=== PATIENT | female | born 1985 | race African-American/Black ===

== ENCOUNTER 2017-05-07 15:31 | Emergency (ER) | payer BC, OTHER ==
[2017-05-07 15:40] VITALS: BP 120/79; PULSE 103; TEMP 98.9; BMI 43.8
--- NOTE | 2017-05-07 16:13 | PDOC ---
History of Present Illness - General Chief Complaint: Respiratory Stated Complaint: COUGH Time Seen by Provider: 05/07/17 15:48 History Source: Patient Exam Limitations: No Limitations - History of Present Illness Initial Comments: 05/07/17 16:28 Patient came to emergency department for evaluation of worsening cold, sneezing , ear pain, sore throat pain, runny nose or drainage and generalized body aches. States all of work has been ill with same, and worries about influenza. States his use [id number] medications with minimal resolved. Timing/Duration: reports: getting worse Severity: reports: mild, moderate Associated Symptoms: reports: cough, dizziness, earache, fever/chills, muscle aches, nasal drainage, sore throat Past History - Travel Traveled outside of the country in the last 30 days: No Close contact w/someone who was outside of country & ill: No - Past Medical History Allergies/Adverse Reactions: Allergies Allergy/AdvReac Type Severity Reaction Status Date / Time Latex, Natural Rubber AdvReac Severe Rash Verified 05/07/17 15:40 citrus fruits, oranges AdvReac Uncoded 05/07/17 15:40 Home Medications: Ambulatory Orders No Home Medications 0 dose .ROUTE UTDICT 11/13/12 Oseltamivir Phosphate [Tamiflu -] 75 mg PO BID #10 capsule 05/07/17 COPD: No - Suicide/Smoking/Psychosocial Hx Smoking Status: Yes Smoking History: Current some day smoker Number of Cigarettes Smoked Daily: 8 Information on smoking cessation initiated: No Hx Alcohol Use: Yes (social) Review of Systems - Review of Systems Able to Perform ROS?: Yes Is the patient limited Divehi proficient: Yes Constitutional: Yes: Symptoms Reported, See HPI, Chills, Fever, Malaise HEENTM: Yes: Symptoms Reported, See HPI, Nose Congestion Respiratory: Yes: Symptoms reported, See HPI, Cough. No: Wheezing ABD/GI: Yes: Symptoms Reported, Nausea, Vomiting : No: Symptoms Reported Musculoskeletal: Yes: Symptoms Reported, See HPI, Joint Swelling, Muscle Pain Neurological: Yes: Symptoms reported, See HPI, Headache All Other Systems: Reviewed and Negative *Physical Exam - Vital Signs Last Vital Signs Temp Pulse Resp BP Pulse Ox 98.9 F 103 H 20 120/79 05/07/17 15:36 05/07/17 15:36 05/07/17 15:36 05/07/17 15:36 - Physical Exam Comments: 05/07/17 16:15 GENERAL: [The child is awake, alert, and appropriately interactive.] EYES: [The pupils are equal, round, and reactive to light, with clear, conjunctiva.but glassy] NOSE: [The nose with clear drainage EARS: [The ear canals and tympanic membranes are congested but landmarks easily visualed ] THROAT: [The oropharynx is clear with erythema, no exudates. The mucous membranes are moist.] NECK: [The neck is supple with mildly tender adenopathy, no menigemous] CHEST: [The lungs are coarse but clear without crackles, or wheezes.] HEART: [Heart is regular rhythm, with normal S1 and S2, no murmurs.] ABDOMEN: [The abdomen is soft and nontender with normal bowel sounds. There is no organomegaly and no mass. There is no guarding or rebound.] EXTREMITIES: [Extremities are normal.] NEURO: [Behavior is normal for age.cranky but easily,m Tone is normal.] SKIN: [Skin is unremarkable without rash or swelling. There is no bruising, and there are no other signs of injury.] General Appearance: Yes: Nourished, Appropriately Dressed, Apparent Distress, Mild Distress HEENT: negative: Pharynx Normal Neck: positive: Lymphadenopathy (L) Progress Note - Progress Note Progress Note: Upper respiratory infection, probable influenza. We will treat with Tamiflu as within window, and have follow-up with PMD this week as needed *DC/Admit/Observation/Transfer Diagnosis at time of Disposition: Influenzal acute upper respiratory infection - Discharge Dispostion Disposition: HOME Condition at time of disposition: Stable Admit: No - Prescriptions Prescriptions: Oseltamivir Phosphate [Tamiflu -] 75 mg PO BID #10 capsule - Referrals - Patient Instructions Printed Discharge Instructions: DI for Influenza -- Adult Additional Instructions: Rest, drink lots of fluids: Teas, water, soups, Pedialyte Saltwater gargles Steamy showers/seem to face break up mucus Old-fashioned treatments help! Avoid contact with others until fevers and cough resolved as this is very contagious Lots of handwashing and good hygiene Continue [id number] medications for symptomatic relief Tylenol or Motrin for fever and pain Take all of Tamiflu as directed: 1 tab every 12 hours for 5 days Followup with private physician in one to 2 days as needed or if worsening Return to emergency department for worsened symptoms, fevers, dehydration Influenza takes between 5 and 7 days for resolution To not participate in any activity, work, or school until fevers and cough are gone for at least one day - Post Discharge Activity Forms/Work/School Notes: Back to Work
== END 2017-05-07 16:30 | disposition home or self-care (01) ==
LOC: JERFT 15:31
DX: J11.1 Influenza due to unidentified influenza virus with other respiratory manifestations (principal)
CPT/HCPCS: 99281-25

== ENCOUNTER 2017-05-13 13:16 | Emergency (ER) | payer BC, OTHER ==
[2017-05-13 13:21] VITALS: BP 128/70; PULSE 91; TEMP 98; BMI 43.8
--- NOTE | 2017-05-13 14:07 | PDOC ---
History of Present Illness - General Chief Complaint: Respiratory Stated Complaint: REVISIT,COUGH Time Seen by Provider: 05/13/17 13:47 History Source: Patient Exam Limitations: No Limitations - History of Present Illness Initial Comments: 05/13/17 14:02 This is a 32-year-old female without significant past medical history presents emergency Department with 2 weeks of dry cough. Patient states that approximately 7 days ago she was experiencing rhinorrhea, nasal congestion, sore throat was seen and treated for influenza-type illness with Tamiflu the patient is concerned that the cough has not resolved since then. Patient is here getting reevaluated as the cough has interfered with her daily life any she 's been sent home from work and cannot return without evaluation. She denies fevers, chills, headaches, abdominal pain, nausea, vomiting. Past History - Past Medical History Allergies/Adverse Reactions: Allergies Allergy/AdvReac Type Severity Reaction Status Date / Time Latex, Natural Rubber AdvReac Severe Rash Verified 05/13/17 13:21 citrus fruits, oranges AdvReac Uncoded 05/13/17 13:21 Home Medications: Ambulatory Orders No Home Medications 0 dose .ROUTE UTDICT 11/13/12 Benzonatate [Tessalon Pearls -] 200 mg PO TID #180 cap 05/13/17 COPD: No - Suicide/Smoking/Psychosocial Hx Smoking Status: Yes Smoking History: Current some day smoker Number of Cigarettes Smoked Daily: 8 Information on smoking cessation initiated: No Hx Alcohol Use: Yes (social) Review of Systems - Review of Systems Able to Perform ROS?: Yes Is the patient limited Icelandic proficient: No Constitutional: No: Symptoms Reported HEENTM: No: Symptoms Reported Respiratory: Yes: See HPI Cardiac (ROS): No: Symptoms Reported ABD/GI: No: Symptoms Reported : No: Symptoms Reported Musculoskeletal: No: Symptoms Reported Integumentary: No: Symptoms Reported Neurological: No: Symptoms reported Endocrine: No: Symptoms Reported Hematologic/Lymphatic: No: Symptoms Reported *Physical Exam - Vital Signs Last Vital Signs Temp Pulse Resp BP Pulse Ox 98 F 91 H 18 128/70 99 05/13/17 13:17 05/13/17 13:17 05/13/17 13:17 05/13/17 13:17 05/13/17 13:17 - Physical Exam General Appearance: Yes: Appropriately Dressed. No: Apparent Distress HEENT: positive: Normal ENT Inspection Neck: positive: Trachea midline, Supple Respiratory/Chest: positive: Lungs Clear, Normal Breath Sounds. negative: Respiratory Distress, Accessory Muscle Use Cardiovascular: positive: Regular Rhythm, Regular Rate. negative: Murmur Gastrointestinal/Abdominal: positive: Normal Bowel Sounds, Soft. negative: Tender Musculoskeletal: positive: Normal Inspection. negative: CVA Tenderness Extremity: positive: Normal Inspection, Normal Range of Motion Integumentary: positive: Normal Color, Dry, Warm Neurologic: positive: Alert, Normal Response ED Treatment Course - RADIOLOGY Radiology Studies Ordered: Category Date Time Status CHEST PA & LAT [RAD] Stat Radiology 05/13/17 13:57 Ordered Medical Decision Making - Medical Decision Making 05/13/17 14:05 A/P: 32-year-old female without medical history presents with 2 weeks of dry cough. Lungs clear to auscultation bilaterally. Respirations even and unlabored. Patient coughing throughout exam. Cough is dry nonproductive. Patient is able to speak in full sentences RRR. S1 and S2 present. No murmurs, rub or gallop. Abdomen soft nontender nondistended. Patient is a 32 tried symptomatic treatments and as mentioned for influenza. I'll perform a chest x-ray given symptoms been lasting 2 weeks to rule out pneumonia. 05/13/17 14:37 X-rays read by Dr. Leal: No acute pathology present. I'll discharge the patient home to continue symptomatic treatment. I'll give the patient a prescription for Tessalon Perles to help with her cough. *DC/Admit/Observation/Transfer Diagnosis at time of Disposition: Upper respiratory infection Qualifiers: URI type: unspecified viral URI Qualified Code(s): J06.9 - Acute upper respiratory infection, unspecified - Discharge Dispostion Disposition: HOME Condition at time of disposition: Stable Admit: No - Prescriptions Prescriptions: Benzonatate [Tessalon Pearls -] 200 mg PO TID #180 cap - Referrals Referrals: Vinh Barrow MD [Primary Care Provider] - - Patient Instructions Additional Instructions: Rest, drink lots of fluids: Teas, water, soups, Pedialyte Saltwater gargles Steamy showers/seem to face break up mucus Avoid contact with others until fevers and cough resolved Lots of handwashing and good hygiene Continue [id number] medications for symptomatic relief Tylenol or Motrin for fever and pain Take Tessalon 200 mg 3 times a day for coughing Followup with private physician in one to 2 days as needed Return to emergency department for worsened symptoms, fevers, dehydration - Post Discharge Activity
== END 2017-05-13 14:50 | disposition home or self-care (01) ==
LOC: JERFT 13:16
DX: J06.9 Acute upper respiratory infection, unspecified (principal); F17.210 Nicotine dependence, cigarettes, uncomplicated
CPT/HCPCS: 71046-TC-FY; 84703; 99281-25

== ENCOUNTER 2018-04-01 01:30 | Emergency (ER) | payer OTHER, BC ==
--- NOTE | 2018-04-01 01:58 | PDOC ---
History of Present Illness - General Stated Complaint: FALL Time Seen by Provider: 04/01/18 01:57 History Source: Patient Exam Limitations: No Limitations - History of Present Illness Timing/Duration: 4-6 hours Severity: moderate Past History - Travel Traveled outside of the country in the last 30 days: No Close contact w/someone who was outside of country & ill: No - Past Medical History Allergies/Adverse Reactions: Allergies Allergy/AdvReac Type Severity Reaction Status Date / Time Latex, Natural Rubber AdvReac Severe Rash Verified 04/01/18 01:59 citrus fruits, oranges AdvReac Uncoded 04/01/18 01:59 Home Medications: Ambulatory Orders No Home Medications 0 dose .ROUTE UTDICT 11/13/12 Benzonatate [Tessalon Pearls -] 200 mg PO TID #180 cap 05/13/17 COPD: No - Suicide/Smoking/Psychosocial Hx Smoking Status: Yes Smoking History: Current some day smoker Number of Cigarettes Smoked Daily: 8 Hx Alcohol Use: Yes (social) Review of Systems - Review of Systems Constitutional: No: Symptoms Reported, See HPI, Chills, Diaphoresis, Fever, Loss of Appetite, Malaise, Night Sweats, Weakness, Weight Stable, Unintentional Wgt. Loss, Unexplained wgt Loss, Other HEENTM: No: Symptoms Reported, See HPI, Eye Pain, Blurred Vision, Tearing, Recent change in vision, Double Vision, Cataracts, Ear Pain, Ocular Prothesis, Ear Discharge, Nose Pain, Nose Congestion, Tinnitus, Nose Bleeding, Hearing Loss , Throat Pain, Throat Swelling, Mouth Pain, Dental Problems, Difficulty Swallowing, Mouth Swelling, Other Respiratory: No: Symptoms reported, See HPI, Cough, Orthopnea, Shortness of Breath, SOB with Exertion, SOB at Rest, Stridor, Wheezing, Productive cough, Hemoptysis, Other Cardiac (ROS): No: Symptoms Reported, See HPI, Chest Pain, Edema, Irregular Heart Rate, Lightheadedness, Palpitations, Syncope, Chest Tightness, Other ABD/GI: No: Symptoms Reported, See HPI, Abdominal Distended, Abd. Pain w/ defecation, Blood Streaked Bowels, Constipated, Diarrhea, Difficulty Swallowing , Nausea, Poor Appetite, Poor Fluid Intake, Rectal Bleeding, Vomiting, Indigestion, Abdominal cramping, Tarry Stools, Other : No: Symptoms Reported, See HPI, Burning, Dysuria, Discharge, Frequency, Flank Pain, Hematuria, Incontinence, Pain, Urgency, Testicular Mass, Testicular Swelling, Lesions, Testicular Pain, Other Musculoskeletal: No: Symptoms Reported, See HPI, Back Pain, Gout, Joint Pain, Joint Swelling, Muscle Pain, Muscle Weakness, Neck Pain, Joint Stiffness, Other Integumentary: No: Symptoms Reported, See HPI, Bruising, Change in Color, Change in Hair/Nails, Dryness, Erythema, Flushing, Lesions, Lumps, Pallor, Pruritus, Rash, Sweating, Other Neurological: No: Symptoms reported, See HPI, Headache, Numbness, Paresthesia, Pre-Existing Deficit, Seizure, Tingling, Tremors, Weakness, Unsteady Gait, Ataxia, Dizziness, Other Psychiatric: No: Anxiety, Depression, Frequent Crying, Stressors, Sleep Pattern Change, Emotional Problems, Mood Swings, Change in Appetite, Other *Physical Exam - Physical Exam General Appearance: Yes: Nourished, Appropriately Dressed, Mild Distress HEENT: positive: EOMI, DOMINIK, Normal ENT Inspection, Normal Voice, Symmetrical, TMs Normal, Pharynx Normal Neck: positive: Trachea midline, Supple Respiratory/Chest: positive: Chest Tender, Lungs Clear, Normal Breath Sounds, Respiratory Distress Cardiovascular: positive: Regular Rhythm, Regular Rate, S1, S2 Gastrointestinal/Abdominal: positive: Flat, Soft Musculoskeletal: positive: Normal Inspection. negative: CVA Tenderness Extremity: positive: Tender, Pedal Edema, Swelling, Erythema, Inflammation. negative: Cyanosis, Delayed Capillary Refill Integumentary: positive: Normal Color, Dry, Warm Neurologic: positive: traveling nurse II-XII NML intact, Fully Oriented, Alert, Normal Mood/ Affect, Normal Response, Motor Strength 5/5 Medical Decision Making - Medical Decision Making 04/01/18 03:25 Patient Name: LOW BRUNER THIS IS A PRELIMINARY REPORT FROM [facility] DATE OF SERVICE: 2018-04-01 02:12:01 IMAGES: 5 EXAM: X-ray angle and x-ray left foot HISTORY: Trauma COMPARISON: None. FINDINGS: X-ray left ankle: No fracture or dislocation. A dorsal talar spur is noted which appears chronic. No joint effusion. X-ray left ankle: No fracture or dislocation. IMPRESSION: No fracture of the left ankle or left foot *DC/Admit/Observation/Transfer Diagnosis at time of Disposition: Foot sprain, Ankle sprain - Discharge Dispostion Disposition: HOME Condition at time of disposition: Stable Decision to Admit order: No - Referrals Referrals: Vinh Barrow MD [Primary Care Provider] - Ace Beck MD [Staff Physician] - - Patient Instructions Printed Discharge Instructions: DI for Ankle Sprain, DI for Foot Sprain - Post Discharge Activity
[2018-04-01 02:00] VITALS: BP 118/76; PULSE 98; TEMP 97.6; BMI 43.8
[2018-04-01] MEDS ORDERED: IBUPROFEN 600 MG TABLET (FP) PO ONE (03:23)
[2018-04-01] MEDS ORDERED: IBUPROFEN 400 MG TABLET (FP) PO ONE (03:24)
== END 2018-04-01 03:31 | disposition home or self-care (01) ==
LOC: JER 01:30
DX: S93.492A Sprain of other ligament of left ankle, initial encounter (principal); S93.692A Other sprain of left foot, initial encounter; W19.XXXA Unspecified fall, initial encounter; Y93.89 Activity, other specified; Y92.89 Other specified places as the place of occurrence of the external cause; Y99.8 Other external cause status
CPT/HCPCS: 73590-TC-LT-FY; 73610-TC-LT-FY; 73630-TC-LT; 99281-25

== ENCOUNTER 2020-11-01 18:24 | Emergency (ER) | payer BC ==
[2020-11-01 18:48] VITALS: BP 125/79; PULSE 122; TEMP 97; BMI 41.0
[2020-11-01] MEDS ORDERED: SODIUM CHLORIDE 0.9% 500 ML INFUS.BAG IV ONE (19:20)
[2020-11-01] MEDS ORDERED: FAMOTIDINE 20 MG/50 ML IVPB 20 MG/50 ML MG IVPB ONE ×2 (19:20→19:32)
[2020-11-01] MEDS ORDERED: methylPREDNISolone NA SUCC 125 MG/2 ML VIAL IVPB ONE (19:20)
[2020-11-01] MEDS ORDERED: methylPREDNISolone NA SUCC 125 MG/2 ML VIAL ONE (19:32)
== END 2020-11-01 22:09 | disposition home or self-care (01) ==
LOC: JERFT 18:24
PROC: 3E033GC Introduction of Other Therapeutic Substance into Peripheral Vein, Percutaneous Approach (ICD-10-PCS; principal; 2020-11-01)
PROC: 3E033GC Introduction of Other Therapeutic Substance into Peripheral Vein, Percutaneous Approach (ICD-10-PCS; 2020-11-01)
PROC: 3E033GC Introduction of Other Therapeutic Substance into Peripheral Vein, Percutaneous Approach (ICD-10-PCS; 2020-11-01)
DX: T78.40XA Allergy, unspecified, initial encounter (principal)
CPT/HCPCS: 99284-25

== ENCOUNTER 2020-11-05 04:02 | Emergency (ER) | payer BC ==
[2020-11-05 04:16] VITALS: TEMP 98.2; BMI 37.8
[2020-11-05] MEDS ORDERED: methylPREDNISolone NA SUCC 125 MG/2 ML VIAL IVPB ONE (04:20)
[2020-11-05] MEDS ORDERED: FAMOTIDINE 20 MG/50 ML IVPB 20 MG/50 ML MG IVPB ONE ×2 (04:20→04:23)
[2020-11-05] MEDS ORDERED: methylPREDNISolone NA SUCC 125 MG/2 ML VIAL ONE (04:23)
[2020-11-05] MEDS ORDERED: EPINEPHrine 1:1,000 0.3 MG/0.3 ML SYR IM ONE (04:39)
[2020-11-05 04:52] LABS: HEMATOCRIT 37.9 % (32.4-45.2); HEMOGLOBIN 12.9 GM/dL (10.7-15.3); MCH 29.9 pg (25.7-33.7); MCHC 34.2 g/dl (32.0-36.0); MEAN CELL VOLUME 87.6 fl (80-96); MEAN PLT VOLUME 7.1 fl (7.5-11.1); PLATELET COUNT 342 10^3/uL (134-434); RBC 4.32 M/mm3 (3.60-5.2); RDW 13.7 % (11.6-15.6); WHITE BLOOD COUNT 19.3 K/mm3 (4.0-10.0)
[2020-11-05 05:14] LABS: ALBUMIN 4.1 g/dl (3.4-5.0); BLOOD UREA NITROGEN 14.4 mg/dL (7-18)
[2020-11-05 05:18] LABS: CREATININE 1.2 mg/dL (0.55-1.3)
[2020-11-05 05:19] LABS: BILIRUBIN,TOTAL 0.2 mg/dL (0.2-1); TOT PROT 7.7 g/dl (6.4-8.2)
[2020-11-05] MEDS ORDERED: EPINEPHrine/PF 1 MG/1 ML (1:1,000) AMPULE ONE (05:25)
[2020-11-05 08:33] LABS: ANISOCYTOSIS 0; HELMET CELLS 0; HOWELL-JOLLY BODIES 0; MACROCYTOSIS 0; OVALOCYTE 0; PLATELET ESTIMATE NORMAL; ROULEAU 0; SICKELED CELLS 0; TARGET CELLS 0; TEAR DROP CELLS 0; TOXIC GRANULATION 0
[2020-11-05 11:13] VITALS: BP 121/87; PULSE 81
== END 2020-11-05 10:20 | disposition home or self-care (01) ==
LOC: JER 04:02
PROC: 3E023NZ Introduction of Analgesics, Hypnotics, Sedatives into Muscle, Percutaneous Approach (ICD-10-PCS; principal; 2020-11-05)
DX: T78.40XA Allergy, unspecified, initial encounter (principal)
CPT/HCPCS: 36415; 80053; 84703; 85025; 93005; 93010; 99284-25

== ENCOUNTER 2020-11-06 15:44 | Emergency (ER) | payer BC ==
[2020-11-06 15:52] VITALS: TEMP 98.3; BMI 37.0
[2020-11-06] MEDS ORDERED: FAMOTIDINE 20 MG/50 ML IVPB 20 MG/50 ML MG IVPB ONE ×2 (16:58→17:19)
[2020-11-06] MEDS ORDERED: LACTATED RINGERS SOLUTION 1000 ML INFUS.BAG IV ONE (17:20)
[2020-11-06] MEDS ORDERED: DEXAMETHASONE SOD PHOSPHATE 10 MG/1 ML VIAL IVPB ONE (17:21)
[2020-11-06] MEDS ORDERED: ALBUTEROL SO4 HFA INHALER IH ONE ×2 (17:21→18:11)
[2020-11-06] MEDS ORDERED: DEXAMETHASONE SOD PHOSPHATE 10 MG/1 ML VIAL ONE (17:53)
[2020-11-06 19:11] LABS: BASO % 0.2 % (0-2.0); EOS % 0.1 % (0-4.5); HEMATOCRIT 36.3 % (32.4-45.2); HEMOGLOBIN 12.2 GM/dL (10.7-15.3); LYMPH % 15.9 % (8-40); MCH 30.2 pg (25.7-33.7); MCHC 33.8 g/dl (32.0-36.0); MEAN CELL VOLUME 89.3 fl (80-96); MEAN PLT VOLUME 7.4 fl (7.5-11.1); MONO % 6.6 % (3.8-10.2); NEUT % 77.2 % (42.8-82.8); PLATELET COUNT 127 10^3/uL (134-434); RBC 4.06 M/mm3 (3.60-5.2); RDW 13.6 % (11.6-15.6)
[2020-11-06 19:30] LABS: CHLORIDE 107 mmol/L (98-107); SODIUM 141 mmol/L (136-145)
[2020-11-06 19:32] LABS: ALBUMIN 3.5 g/dl (3.4-5.0); ANION GAP 8 MMOL/L (8-16); BLOOD UREA NITROGEN 14.7 mg/dL (7-18); CALCIUM 8.1 mg/dL (8.5-10.1); CO2 26 mmol/L (21-32)
[2020-11-06 19:33] LABS: GLUCOSE,RANDOM 75 mg/dL (74-106)
[2020-11-06 19:35] LABS: CREATININE 0.9 mg/dL (0.55-1.3); SGOT/AST 14 U/L (15-37); SGPT/ALT 18 U/L (13-61)
[2020-11-06 19:37] LABS: BILIRUBIN,TOTAL 0.3 mg/dL (0.2-1); TOT PROT 6.7 g/dl (6.4-8.2)
[2020-11-06 19:38] LABS: ALK PHOS 62 U/L (45-117)
[2020-11-06] MEDS ORDERED: POTASSIUM CHLORIDE ORAL LIQUID 20 MEQ/15 ML PO ONE (19:55)
[2020-11-06] MEDS ORDERED: POTASSIUM CHLORIDE ORAL LIQUID 20 MEQ/15 ML ONE (19:59)
[2020-11-06 20:23] VITALS: BP 122/78; PULSE 84
== END 2020-11-06 20:25 | disposition home or self-care (01) ==
LOC: JER 15:44
PROC: 3E033GC Introduction of Other Therapeutic Substance into Peripheral Vein, Percutaneous Approach (ICD-10-PCS; principal; 2020-11-06)
PROC: 3E033GC Introduction of Other Therapeutic Substance into Peripheral Vein, Percutaneous Approach (ICD-10-PCS; 2020-11-06)
DX: R21 Rash and other nonspecific skin eruption (principal); R07.9 Chest pain, unspecified; T78.40XA Allergy, unspecified, initial encounter
CPT/HCPCS: 36415; 71046-TC-FY; 80053; 84484; 85025; 93005; 93010; 99284-25; J1100

== ENCOUNTER 2023-01-09 17:05 | Emergency (ER) | payer BC ==
[2023-01-09 17:16] VITALS: BP 104/68; PULSE 105; RESP 18; TEMP 98; BMI 45.3
[2023-01-09] MEDS ORDERED: ONDANSETRON 4 MG/2 ML VIAL IVPUSH ONE (17:41)
[2023-01-09] MEDS ORDERED: SODIUM CHLORIDE 0.9% 500 ML INFUS.BAG IV ONE (17:41)
[2023-01-09] MEDS ORDERED: ACETAMINOPHEN 1000 MG/100 ML BAG IVPB ONE (17:41)
[2023-01-09] MEDS ORDERED: ONDANSETRON 4 MG/2 ML VIAL ONE (17:51)
[2023-01-09] MEDS ORDERED: ACETAMINOPHEN INJECTION 100 ML IVPB ONE (17:51)
[2023-01-09 19:12] LABS: HEMATOCRIT 45.4 % (32.4-45.2); HEMOGLOBIN 15.2 GM/dL (10.7-15.3); MCH 28.5 pg (25.7-33.7); MCHC 33.6 g/dl (32.0-36.0); MEAN CELL VOLUME 84.9 fl (80-96); PLATELET COUNT 431 10^3/uL (134-434); RBC 5.35 M/mm3 (3.60-5.2); RDW 13.8 % (11.6-15.6); WHITE BLOOD COUNT 15.7 K/mm3 (4.0-10.0)
[2023-01-09 19:28] LABS: POTASSIUM 4.3 mmol/L (3.5-5.1)
[2023-01-09 19:30] LABS: CALCIUM 9.8 mg/dL (8.5-10.1)
[2023-01-09 19:31] LABS: ALBUMIN 4.5 g/dl (3.4-5.0); BLOOD UREA NITROGEN 13.8 mg/dL (7-18)
[2023-01-09 19:35] LABS: BILIRUBIN,TOTAL 0.8 mg/dL (0.2-1); TOT PROT 8.5 g/dl (6.4-8.2)
[2023-01-09 20:29] LABS: ANISOCYTOSIS 0; MACROCYTOSIS 0; PLATELET ESTIMATE NORMAL
[2023-01-09] MEDS ORDERED: METOCLOPRAMIDE HCL INJECTION 10 MG/2 ML VIAL IVPUSH ONE (20:39)
[2023-01-09] MEDS ORDERED: METOCLOPRAMIDE HCL INJECTION 10 MG/2 ML VIAL ONE (20:41)
== END 2023-01-09 21:42 | disposition home or self-care (01) ==
LOC: JER 17:05
PROC: 3E033NZ Introduction of Analgesics, Hypnotics, Sedatives into Peripheral Vein, Percutaneous Approach (ICD-10-PCS; principal; 2023-01-09)
PROC: 3E033GC Introduction of Other Therapeutic Substance into Peripheral Vein, Percutaneous Approach (ICD-10-PCS; 2023-01-09)
PROC: 3E033GC Introduction of Other Therapeutic Substance into Peripheral Vein, Percutaneous Approach (ICD-10-PCS; 2023-01-09)
DX: R11.10 Vomiting, unspecified (principal); R53.83 Other fatigue; A08.4 Viral intestinal infection, unspecified
CPT/HCPCS: 36415; 80053; 83690; 84703; 85025; 99284-25